=== PATIENT | male | born 1980 | race Two or more races ===

== ENCOUNTER 2023-05-10 11:43 | Emergency (ER) | payer OTHER ==
[~2023-05-10] VITALS: Ht 175.3 cm; Wt 87.3 kg
[2023-05-10 13:49] VITALS: BP 121/67; PULSE 105; RESP 16; TEMP 97.3; O2SAT 97
[2023-05-10] MEDS ORDERED: MELO7.5T7 PO (14:20)
== END 2023-05-10 14:21 | disposition home or self-care (01) ==
LOC: ER 11:43
DX: M54.50 Low back pain, unspecified (principal)

== ENCOUNTER 2023-08-28 23:42 | Emergency (ER) | payer MEDICAID, OTHER ==
[~2023-08-28] VITALS: Ht 172.7 cm; Wt 84.7 kg
[~2023-08-28 23:42] MED LIST: MELO7.5T7 PO
[2023-08-29 00:17] VITALS: BP 124/84; PULSE 87; RESP 16; O2SAT 98
[2023-08-29] MEDS ORDERED: HYDR-4798 PO (02:21)
[2023-08-29] MEDS: HYDROcodone-ACET 10/325MG TAB PO ONE (02:29)
[2023-08-30] MEDS ORDERED: LIDO5DIS21 TOP (00:29)
== END 2023-08-29 02:52 | disposition home or self-care (01) ==
LOC: ER 23:42
DX: G89.29 Other chronic pain (principal); M54.50 Low back pain, unspecified; M25.531 Pain in right wrist; Z88.6 Allergy status to analgesic agent